=== PATIENT | female | born 1970 | race Caucasian/White ===

== ENCOUNTER → 2018-04-07 | Outpatient (CLI) | payer BC, OTHER ==
--- NOTE | 2018-04-07 15:47 | US ---
EXAM DESCRIPTION: Abdomen,Complete CLINICAL HISTORY: 47 years Female, K70.31 K76.0 COMPARISON: None available. TECHNIQUE: Multiple transverse and longitudinal static sonographic images of the upper abdomen were obtained. FINDINGS: Visualized portions of the pancreas appear normal. The liver demonstrates heterogenous echotexture representing fatty infiltration versus parenchymal disease. No focal masses are identified sonographically. The portal vein is patent. Multiple gallstones are identified. No evidence of sonographic Tai sign. No evidence of wall thickening or hyperemia or pericholecystic fluid. The common duct is nondilated and measures 2.6 mm. The right kidney measures 9.9 x 4.4 x 4.7 cm and the left kidney measures 10.8 x 4 x 4 cm. No hydronephrosis or perinephric fluid collections. The spleen measures 14.4 cm in greatest dimension. The visualized abdominal aorta is nonaneurysmal and measures 2 cm in the proximal portion, 1.6 cm in the midportion 1.5 cm in the distal portion. Visualized portions of the inferior vena cava appears normal. IMPRESSION: Hepatic steatosis versus parenchymal disease. Cholelithiasis. Electronically signed by: Sherie Wilks MD 04/07/2018 3:45 PM CDT
== END ==
LOC: US 09:52
PROVIDERS: ATTEND Internal Medicine
DX: K70.31 Alcoholic cirrhosis of liver with ascites (principal); K76.0 Fatty (change of) liver, not elsewhere classified

== ENCOUNTER → 2018-11-10 | Outpatient (CLI) | payer BC, OTHER ==
--- NOTE | 2018-11-10 12:21 | US ---
EXAM DESCRIPTION: Abdomen,Complete: Ultrasound. CLINICAL HISTORY: ALCOHOLIC CIRRHOSIS OF LIVER WITH ASCITES COMPARISON: None Available. TECHNIQUE: Transabdominal scannin-dimensional and Doppler modes. FINDINGS: Gallbladder: Normal size. Multiple layering stones with acoustic posterior shadowing.. Normal wall thickness 2 mm. No surrounding fluid. Nontender with transducer pressure. Common bile duct: 2.1 mm normal caliber. Liver: Heterogeneously increased density with long axis of the right lobe 14.5 cm. Smooth capsule no ascites. Hepatopedal flow in the portal vein with 1.3 cm caliber. No intrahepatic biliary dilatation. Pancreas: Normal size and echogenicity, duct not seen.. Abdominal aorta: Normal caliber from the proximal segment to the distal bifurcation. IVC: visualized; normal caliber. Spleen normal echogenicity; no focal lesions. Long axis measurement is 18.3 cm. Right kidney: Heterogeneous cortical echogenicity with minimal thinning. 10 cm long axis. No hydronephrosis or echogenic stones, no perinephric fluid. Left kidney: Heterogeneous cortical echogenicity with minimal thinning. 11 cm long axis. No hydronephrosis or echogenic stones; no perinephric fluid. IMPRESSION: Splenomegaly with normal echogenicity and no focal lesions. No ascites. Steatosis of the liver with normal size and ducts. Normal vascularity. Smooth capsule. Cholelithiasis of the gallbladder with no wall thickening. Nontender during scanning. Normal caliber of the common bile duct. Bilateral kidneys with cortical thinning and heterogeneously increased echogenicity. No hydronephrosis. No echogenic stones. Electronically signed by: Walt Perez MD 11/10/2018 12:20 PM [employer]
== END ==
LOC: US 09:50
PROVIDERS: ATTEND Clinical Nurse Specialist Adult Health
DX: K70.31 Alcoholic cirrhosis of liver with ascites (principal); K76.0 Fatty (change of) liver, not elsewhere classified; R16.1 Splenomegaly, not elsewhere classified; K80.20 Calculus of gallbladder without cholecystitis without obstruction

== ENCOUNTER → 2019-05-14 | Outpatient (CLI) | payer MEDICARE, OTHER ==
--- NOTE | 2019-05-14 13:22 | US ---
EXAM DESCRIPTION: Abdomen,Complete: Ultrasound. CLINICAL HISTORY: ALCOHOLIC CIRRHOSIS OF LIVER WITH ASCITES COMPARISON: None Available. TECHNIQUE: Transabdominal scannin-dimensional and Doppler modes. FINDINGS: Gallbladder: Small. Wall thickness 2.4 mm. No fluid. Echogenic stones with shadowing measuring 3.6 to 4.8 mm. Nontender with transducer pressure. Common bile duct: Not well seen. Liver: Long axis right lobe 12.1 cm. Diffuse increased echogenicity. Scalloped lobulated capsule. Normal flow portal vein. No intrahepatic biliary dilatation. No ascites. Pancreas: Normal echoes of the included segments with duct not seen.. Abdominal aorta: Normal caliber from the proximal segment to the distal bifurcation. IVC: visualized; normal caliber. Spleen normal echogenicity; long axis measurement is 16.4 cm. Right kidney: 9.2 cm long axis. Normal cortical thickness and echogenicity. No hydronephrosis, no perinephric fluid, no echogenic stones. Left kidney: 9.6 cm long axis. Cortical thickness 11 mm. Normal echogenicity. No hydronephrosis, no perinephric fluid, no echogenic stones. IMPRESSION: 1. Multiple gallstones measuring less than 5 mm diameter. No abnormal wall thickening or fluid. Nontender with transducer pressure. Common bile duct was not seen. 2. Liver is small with lobular scalloped capsule and increased echogenicity which could represent early chronic cirrhosis. Evaluate for other chronic hepatic disease. Normal hepatopedal flow in the portal vein. No dilated ducts and no ascites. 3. Splenomegaly with no focal lesions or ascites. Pancreas unremarkable. Normal caliber of the abdominal aorta and IVC. 4. Cortical thinning left kidney otherwise unremarkable. Right kidney is negative. Electronically signed by: Walt Perez MD 05/14/2019 1:20 PM CDT
== END ==
LOC: US 10:46
PROVIDERS: ATTEND Internal Medicine
DX: K70.31 Alcoholic cirrhosis of liver with ascites (principal); K80.20 Calculus of gallbladder without cholecystitis without obstruction; K76.0 Fatty (change of) liver, not elsewhere classified; I10 Essential (primary) hypertension

== ENCOUNTER 2020-03-26 03:27 | Emergency (ER) | payer MEDICARE ==
[2020-03-26 03:48] VITALS: TEMP 100.2
[2020-03-26] MEDS: ONDANSETRON INJ 4 MG/2 ML VIAL IV ONE (03:55)
[2020-03-26] MEDS: SODIUM CHLORIDE 0.9% 1000ML 1,000 ML IVS ONE (03:55)
--- NOTE | 2020-03-26 04:03 | ED.PDOC ---
History of Present Illness - General Chief Complaint: GI Problem Stated Complaint: N/V/D x's 2 days, no urine in 24RH Time Seen by Provider: 03/26/20 03:45 Source: patient, RN notes reviewed, Vital Signs reviewed, family Exam Limitations: no limitations - History of Present Illness Initial Comments: Pt is a 49 yo female with PMH of alcoholic cirrhosis who presents to ED with 48 hour h/o nausea, vomiting and diiarrhea. Also reports decreasd UOP past 24 hours. Has had crampy, diffuse abdominal pain. Denies blood in stool or emesis, fever, sick contacts, bad food or recent travel. 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 Allergies/Adverse Reactions: Allergies Cefaclor [From Ceclor] Allergy (Verified 03/26/20 03:48) Home Medications: Ambulatory Orders Acetaminophen [Tylenol] 0 mg PO .Q4H 03/26/20 B-Complex Vitamins [Vitamin B Complex] 1 tab PO 03/26/20 Gabapentin [Neurontin] 300 mg PO BID 03/26/20 Lactulose (Encephalopathy) [Lactulose] 60 ml PO 03/26/20 Levothyroxine Sodium [Synthroid] 0.05 mg PO QAM 03/26/20 Multiple Vitamins W/ Minerals [Multivitamin Adults] 1 tab PO 03/26/20 Ondansetron HCl [Zofran] 4 mg PO Q6HR PRN #15 tab 03/26/20 Pantoprazole Tablet [Protonix] 40 mg PO ACBK 03/26/20 Spironolactone 50 mg PO BID 03/26/20 Xifaxan BID 03/26/20 Zinc TID 03/26/20 diphenhydrAMINE HCL [Benadryl] 50 mg PO BEDTIME PRN 03/26/20 Review of Systems - Review of Systems Constitutional: Denies: chills, fever, weakness EENTM: Denies: nose congestion, throat pain Respiratory: Denies: cough, short of breath, stridor Cardiology: Denies: chest pain, edema, palpitations, syncope Gastrointestinal/Abdominal: States: abdominal pain, diarrhea, nausea, vomiting Genitourinary: States: dysuria, frequency, hematuria, other - decreased urine output Musculoskeletal: Denies: back pain, neck pain Skin: States: no symptoms reported Neurological: Denies: headache, paresthesia, weakness Hematologic/Lymphatic: States: no symptoms reported All other Systems: Reviewed and Negative Past Medical History (General) - Patient Medical History Hx Seizures: No Hx Stroke: No Hx Dementia: No Hx Asthma: No Hx of COPD: No Hx Cardiac Disorders: No Hx Congestive Heart Failure: No Hx Pacemaker: No Hx Hypertension: No Hx Thyroid Disease: Yes Hx Diabetes: No Hx Gastroesophageal Reflux: Yes Hx Renal Disease: No Hx Cancer: No Hx of HIV: No Hx Hepatitis C: No Hx MRSA: No - Vaccination History Hx Tetanus, Diphtheria Vaccination: Yes Hx Influenza Vaccination: Yes - Social History Hx Alcohol Use: Yes - Quit 2015 Family Medical History - Family History Mother Family History: Unknown Physical Exam - Physical Exam General Appearance: Alert, Comfortable, No apparent distress, Other - Nontoxic. No jaundice Eye Exam: bilateral other - No scleral icterus Ears, Nose, Throat: normal pharynx Neck: non-tender, full range of motion, supple Respiratory: chest non-tender, lungs clear, normal breath sounds, no respiratory distress, no accessory muscle use Cardiovascular/Chest: no edema, tachycardia Gastrointestinal/Abdominal: other - soft. Mild TTP diffusely. No guarding or rigidity Back Exam: no CVA tenderness, no vertebral tenderness Extremity: non-tender, normal inspection, no pedal edema Neurologic: alert, normal mood/affect, oriented x 3 Skin Exam: normal color, warm/dry Progress - Progress Progress: 03/26/20 04:10 Pt has h/o cirrhosis, presents with 2 day h/o NVD, decreased UOP. Mild abd tenderness on exam. Will get CT A/P to r/o infectious cause and labs/UA. Treat with IVF and Zofran and observe in ED. 03/26/20 06:22 Pt feels improved and tolerating po fluids well. I have discussed labs and imaging. Will continue potassium supplement at home and f/u with pcp within 1 week for repeat labs. Reynolds diet for 48 hours and encouraged po hydration with water and pedialyte. SRP given. - Results/Orders Results/Orders: EKG--sinus tachycardia, rate 102, nml intervals, no ST abnormality CT Abd/Pelvis FINDINGS: Abdomen: There is mild elevation of the right hemidiaphragm. The lung bases are clear. There is fatty infiltration of the liver. There is an irregular contour of the liver consistent with changes of cirrhosis. Recanalized paraumbilical vein and small esophageal varices are noted indicative of portal hypertension. Multiple gallstones are noted in the gallbladder. Solid abdominal organs are otherwise unremarkable. There is no free fluid or free air within the abdomen. There is no abdominal adenopathy. The abdominal portion of the GI tract is unremarkable. Pelvis: Uterus is retroverted/retroflexed. Pelvic organs otherwise appear unremarkable by CT. No free fluid is noted in the pelvis. There is no pelvic adenopathy. Pelvic portion of the GI tract including the appendix is unremarkable. No bony abnormality is noted. IMPRESSION: 1. Changes of cirrhosis with evidence of portal hypertension as above. 2. Cholelithiasis. 03/26/20 03:49 IV:Start .ONCE 03/26/20 03:50 Hold Metformin x 48Hrs [id number] 03/26/20 04:25 BLOOD CULTURE Stat Laboratory Results - last 24 hr 03/26/20 03/26/20 03/26/20 03:46 03:46 03:46 WBC 6.4 RBC 4.62 Hgb 14.6 Hct 43.1 MCV 93.3 MCH 31.7 H MCHC 33.9 RDW 15.2 H Plt Count 62 L MPV 8.4 Absolute Neuts (auto) 5.30 Absolute Lymphs (auto) 0.50 L Absolute Monos (auto) 0.50 Absolute Eos (auto) 0.00 Absolute Basos (auto) 0.00 Neutrophils % 83.9 H Lymphocytes % 8.0 L Monocytes % 7.1 Eosinophils % 0.3 L Basophils % 0.7 Sodium 136 Potassium 3.0 L Chloride 99 L Carbon Dioxide 20 L Anion Gap 20.0 H BUN 6 L Creatinine 0.53 L BUN/Creatinine Ratio 11.3 Random Glucose 99 Serum Osmolality 269.6 L Lactic Acid 1.6 Calcium 9.3 Total Bilirubin 2.1 H* AST 116 H ALT 56 Alkaline Phosphatase 105 Serum Total Protein 8.5 H Albumin 4.6 Globulin 3.9 H Albumin/Globulin Ratio 1.2 Lipase 34 Beta HCG, Quant Urine Color Urine Appearance Urine pH Ur Specific [place] Urine Protein Urine Glucose (UA) Urine Ketones Urine Blood Urine Nitrite Urine Bilirubin Urine Urobilinogen Ur Leukocyte Esterase Urine RBC Urine WBC Ur Epithelial Cells Urine Bacteria Urine Mucus Urine Yeast 03/26/20 03/26/20 03:46 04:00 WBC RBC Hgb Hct MCV MCH MCHC RDW Plt Count MPV Absolute Neuts (auto) Absolute Lymphs (auto) Absolute Monos (auto) Absolute Eos (auto) Absolute Basos (auto) Neutrophils % Lymphocytes % Monocytes % Eosinophils % Basophils % Sodium Potassium Chloride Carbon Dioxide Anion Gap BUN Creatinine BUN/Creatinine Ratio Random Glucose Serum Osmolality Lactic Acid Calcium Total Bilirubin AST ALT Alkaline Phosphatase Serum Total Protein Albumin Globulin Albumin/Globulin Ratio Lipase Beta HCG, Quant < 0.6 Urine Color Yellow Urine Appearance Cloudy Urine pH 6.5 Ur Specific [place] 1.020 Urine Protein 100 H Urine Glucose (UA) Negative Urine Ketones 80 H Urine Blood Moderate H Urine Nitrite Negative Urine Bilirubin Small H Urine Urobilinogen 0.2 Ur Leukocyte Esterase Negative Urine RBC 3-5 H Urine WBC 1-3 Ur Epithelial Cells 5-10 Urine Bacteria 1+ Urine Mucus Small Urine Yeast 1+ budding H Departure - Departure Clinical Impression: Gastroenteritis, Hypokalemia Cirrhosis Qualifiers: Hepatic cirrhosis type: alcoholic cirrhosis Ascites presence: without ascites Qualified Code(s): K70.30 - Alcoholic cirrhosis of liver without ascites Time of Disposition: 06:21 Disposition: Discharge to Home or Self Care Condition: Good Departure Forms: ED Discharge - Pt. Copy, Patient Portal Self Enrollment Instructions: Viral Gastroenteritis, Adult (DC) Prescriptions: Ondansetron HCl [Zofran] 4 mg PO Q6HR PRN #15 tab PRN Reason: Nausea Home Medications: Ambulatory Orders Acetaminophen [Tylenol] 0 mg PO .Q4H 03/26/20 B-Complex Vitamins [Vitamin B Complex] 1 tab PO 03/26/20 Gabapentin [Neurontin] 300 mg PO BID 03/26/20 Lactulose (Encephalopathy) [Lactulose] 60 ml PO 03/26/20 Levothyroxine Sodium [Synthroid] 0.05 mg PO QAM 03/26/20 Multiple Vitamins W/ Minerals [Multivitamin Adults] 1 tab PO 03/26/20 Ondansetron HCl [Zofran] 4 mg PO Q6HR PRN #15 tab 03/26/20 Pantoprazole Tablet [Protonix] 40 mg PO ACBK 03/26/20 Spironolactone 50 mg PO BID 03/26/20 Xifaxan BID 03/26/20 Zinc TID 03/26/20 diphenhydrAMINE HCL [Benadryl] 50 mg PO BEDTIME PRN 03/26/20
[2020-03-26] MEDS: POTASSIUM CHLORIDE 20 MEQ TAB PO ONE (05:18)
[2020-03-26 06:06] VITALS: BP 169/102; O2SAT 97
--- NOTE | 2020-03-26 06:06 | CT ---
CT abdomen and pelvis with contrast on 03/26/2020 CLINICAL INDICATION: Vomiting, diarrhea TECHNIQUE: Multiple axial images are obtained throughout the abdomen and pelvis following the administration of IV contrast. This exam was performed according to our departmental dose-optimization program, which includes automated exposure control, adjustment of the mA and/or kV according to patient size and/or use of iterative reconstruction technique. Total DLP is 940.27 mGy*cm. COMPARISON: None FINDINGS: Abdomen: There is mild elevation of the right hemidiaphragm. The lung bases are clear. There is fatty infiltration of the liver. There is an irregular contour of the liver consistent with changes of cirrhosis. Recanalized paraumbilical vein and small esophageal varices are noted indicative of portal hypertension. Multiple gallstones are noted in the gallbladder. Solid abdominal organs are otherwise unremarkable. There is no free fluid or free air within the abdomen. There is no abdominal adenopathy. The abdominal portion of the GI tract is unremarkable. Pelvis: Uterus is retroverted/retroflexed. Pelvic organs otherwise appear unremarkable by CT. No free fluid is noted in the pelvis. There is no pelvic adenopathy. Pelvic portion of the GI tract including the appendix is unremarkable. No bony abnormality is noted. IMPRESSION: 1. Changes of cirrhosis with evidence of portal hypertension as above. 2. Cholelithiasis. Electronically signed by: Sean Malik 03/26/2020 6:03 AM CDT
== END 2020-03-26 06:27 | disposition home or self-care (01) ==
LOC: ER 03:27
DX: K52.9 Noninfective gastroenteritis and colitis, unspecified (principal); K70.30 Alcoholic cirrhosis of liver without ascites; E87.6 Hypokalemia; K21.9 Gastro-esophageal reflux disease without esophagitis; Z88.1 Allergy status to other antibiotic agents; E07.9 Disorder of thyroid, unspecified; Z79.899 Other long term (current) drug therapy
CPT/HCPCS: 74177; 80053; 81001; 83605; 83690; 84702; 85025; 87040; 93005; J2405; J7030